=== PATIENT | female | born 1985 | race American Indian/Alaskan Native ===

== ENCOUNTER 2016-12-01 10:22 | Emergency (ER) | payer SELFPAY ==
[2016-12-01 10:51] VITALS: BP 116/77
[2016-12-01] MEDS ORDERED: XYLOCAINE 2% INFILTRATI ONE (13:29)
--- NOTE | 2016-12-01 13:31 | Emergency Department Report ---
HPI - General Chief Complaint: Skin/Abscess/Foreign Body Time Seen by Provider: 12/01/16 13:29 - HPI HPI: This is a 31-year-old Afro-[place] female presents to the emergency department with complaint of an abscess underneath her left breast for the past 2-3 days. It is "large", painful, and there is allegedly some redness. She denies any drainage or bleeding. She has a history of 1 previous abscess on her leg that required I&D. She has a primary care doctor but has not seen him or in her symptoms. She has not taken anything for symptoms prior to presentation. She denies any fever, nausea, vomiting, chest pain. No recent travel or sick contacts at home. ED Past Medical Hx - Past Medical History Previous Medical History?: No - Surgical History Past Surgical History?: No - Social History Smoking Status: Current Every Day Smoker Substance Use Type: Alcohol - Medications Home Medications: Home Medications Medication Instructions Recorded Confirmed Last Taken Type HYDROcodone/APAP 5-325 [Hope 1 each PO Q6HR PRN #10 tablet 12/01/16 Unknown Rx 5/325] Sulfamethoxazole/Trimethoprim 1 each PO BID #10 tablet 12/01/16 Unknown Rx [Bactrim DS TAB] ED Review of Systems ROS: Stated complaint: CYST UNDER LEFT BREAST Other details as noted in HPI Comment: All other systems reviewed and negative Constitutional: denies: chills, fever Eyes: denies: eye pain, eye discharge, vision change ENT: denies: ear pain, throat pain Respiratory: denies: cough, shortness of breath, wheezing Cardiovascular: denies: chest pain, palpitations Gastrointestinal: denies: abdominal pain, nausea, diarrhea Genitourinary: denies: urgency, dysuria, discharge Musculoskeletal: denies: back pain, joint swelling, arthralgia Skin: other (abscess). denies: pruritus Neurological: denies: headache, weakness, paresthesias Physical Exam - Physical Exam Vital Signs: Vital Signs 12/01/16 10:47 Temperature 97.4 F L Pulse Rate 94 H Respiratory 18 Rate Blood Pressure 116/77 O2 Sat by Pulse 100 Oximetry Physical Exam: GENERAL: The patient is well-developed well-nourished. HEENT: Normocephalic. Atraumatic. Extraocular motions are intact. Patient has moist mucous membranes. NECK: Supple. Trachea is midline. CHEST/LUNGS: Clear to auscultation. There is no respiratory distress noted. HEART/CARDIOVASCULAR: Regular. There is no tachycardia. There is no gallop rub or murmur. ABDOMEN: Abdomen is soft. Nontender. SKIN: Patient has a abscess just underneath the left breast where it meets the chest wall. It is about 2 inches in diameter, fluctuant, tender and warm. There is a very mild amount of erythema. There is a smaller abscess just above it that is actually part of the breast that appears more indurated. NEURO: The patient is awake, alert, and oriented. The patient is cooperative. The patient has no focal neurologic deficits. The patient has normal speech. MUSCULOSKELETAL: There is no tenderness or deformity. There is no limitation range of motion. There is no evidence of acute injury. ED Course Vital Signs 12/01/16 10:47 Temperature 97.4 F L Pulse Rate 94 H Respiratory 18 Rate Blood Pressure 116/77 O2 Sat by Pulse 100 Oximetry - I & D Left Chest Type of Procedure: Simple Site: directly inferior and medial to the left breast Blade Size: 11 I & D Procedure: betadine prep, sterile drapes applied Progress: About 2 mL of 2% lidocaine without epinephrine was used for local infiltration anesthesia. An 11 blade scalpel was used to make a 1 cm incision. There was about 5 mL of purulent drainage. Sterile gauze was used after. Patient tolerated procedure well. ED Medical Decision Making - Medical Decision Making 31-year-old female presents with a abscess just below her left breast. It appeared ready for incision and drainage of this procedure was done with good results and about 5 mL of purulent drainage. Discussed with the patient about using warm compresses. She has a primary care doctor for follow-up. She'll go home with some antibiotics and pain medication. She will return to the ER with any worsening of her symptoms or any acute distress. The more superior abscess was not incised it appeared separate, was more indurated, and appeared to be part of the breast and I did not want to alter the breast structure. - Differential Diagnosis abscess, cyst, boil Critical Care Time: No Critical care attestation.: If time is entered above; I have spent that time in minutes in the direct care of this critically ill patient, excluding procedure time. ED Disposition Clinical Impression: Abscess Disposition: DISCHARGED TO HOME OR SELFCARE Is pt being admited?: No Does the pt Need Aspirin: No Condition: Good Instructions: Abscess (ED) Additional Instructions: Please follow-up with your primary care doctor in the next few days. Use warm compresses over the abscess sites to help express any further infection. Take antibiotics as prescribed. Return to the emergency department with any worsening of your symptoms or any acute distress. You've been prescribed a medication that is sedating. Therefore this medication cannot be mixed with alcohol, or taken prior to driving, working, or being responsible for children. Prescriptions: Sulfamethoxazole/Trimethoprim [Bactrim DS TAB] 1 each PO BID #10 tablet HYDROcodone/APAP 5-325 [Hope 5/325] 1 each PO Q6HR PRN #10 tablet PRN Reason: Pain Referrals: PRIMARY CARE, [Primary Care Provider] - 3-5 Days Time of Disposition: 14:17
== END 2016-12-01 14:26 | disposition home or self-care (01) ==
LOC: ED 10:22
DX: N61.1 Abscess of the breast and nipple (principal); F17.200 Nicotine dependence, unspecified, uncomplicated